=== PATIENT | female | born 1990 | race Caucasian/White ===

== ENCOUNTER 2016-10-08 20:58 | Emergency (ER) ==
[2016-10-08 21:13] VITALS: BP 137/86
--- NOTE | 2016-10-08 21:46 | PROVIDER DOCUMENTATION ---
HPI-Musculoskeletal Pain/Inj - GENERAL Chief Complaint: Extremity Injury Stated Complaint: ANKLE PAIN/BROKE Time Seen by Provider: 10/08/16 21:17 Source: patient - HX OF PRESENT ILLNESS-MUSKULOSKELTAL Nature of Presenting Problem: 26 y/o WF c/o R ankle pain x 30 minutes s/p fall. Pt states inversion injury as she was stepping off of the last step of her front porch. States heard a popping sound, felt pain, and fell forward. Denies any knee pain, numbness/ tingling, head injury, other pain. States pain is 6/10. LROM at ankle. Review of Systems - Adult - REVIEW OF SYSTEMS - ADULT Constitutional: reports: no symptoms reported. denies: chills, fever Eyes: reports: no symptoms reported. denies: blurred vision, double vision Ears, Nose, Mouth & Throat: reports: no symptoms reported. denies: ear pain, nose pain Cardiovascular: reports: no symptoms reported. denies: chest pain, palpitations Respiratory: reports: no symptoms reported. denies: dyspnea on exertion, shortness of breath Gastrointestinal: reports: no symptoms reported. denies: nausea, vomiting Genitourinary: reports: no symptoms reported. denies: dysuria, frequency Musculoskeletal: reports: see HPI, joint pain, joint swelling. denies: back pain, neck pain Integumentary: reports: no symptoms reported. denies: nail changes, rash Neurological: reports: no symptoms reported. denies: numbness, paresthesia Psychiatric: reports: no symptoms reported Endocrine: reports: no symptoms reported. denies: cold intolerance, heat intolerance Hematologic/Lymphatic: reports: no symptoms reported. denies: easy bruising, prolonged bleeding Allergic/Immunologic: reports: no symptoms reported All Other Systems: Reviewed and Negative Past History - Adult - PAST MEDICAL HISTORY-ADULT Review of Records: reports: Nursing Assessment Review, Medications Reviewed Major Childhood Illnesses: reports: denies history Cardiovascular: reports: denies history Respiratory: reports: denies history Gastrointestinal: reports: denies history Genitourinary: reports: denies history Musculoskeletal: reports: denies history Neurological: reports: denies history Psychiatric: reports: denies history Endocrine/Immune: reports: denies history - PRIOR SURGERIES/PROCEDURES Surgical/Procedure History: reports: - PRIOR HOSPITALIZATIONS Prior Hospitalizations: reports: none - SOCIAL HISTORY Smoking: cigarettes, less than 1 pack/day Provider spent 3-5 mins advising pt. on dangers of tobacco.: Discussed manners to quit use, and f/u contacts for add'l counseling. Physical Exam-Injury Related - Physical Exam-Injury Related Initial Vital Signs Reviewed: Yes General Appearance: alert, mild distress Eyes: pink conjunctivae Head, Ears, Nose, Mouth & Throat: normocephalic/atraumatic Neck: normal inspection Respiratory: no respiratory distress Cardiovascular: normal peripheral pulses, regular rate, rhythm Peripheral Pulses: dorsalis-pedis (R): 2+, dorsalis-pedis (L): 2+ Back Exam: normal inspection, no vertebral tenderness Extremity: normal inspection, normal capillary refill, swelling (mild, lateral aspect of R ankle), tenderness (lateral aspect of R ankle). negative: normal range of motion (LROM at R ankle), abnormal NV exam, deformity, pulse deficit Integumentary: normal color, warm/dry, blanching. negative: ecchymosis Neurologic: other (able to move toes on her own on R foot; no R knee, tib/fib pain.). negative: aphasia, sensory deficit Psych/Mental Status: normal mood/affect, normal thought content, normal thought process, oriented x 3 Progress - PLAN OF CARE/RESULTS Progress/Plan/Lab Results: Orders Category Date Time Status Robinson Wrap Application DIRECTED Care 10/08/16 21:51 Active Crutches DIRECTED Care 10/08/16 21:51 Active ANKLE COMPLETE RIGHT [RAD] Stat Exams 10/08/16 21:19 Completed FOOT COMPLETE RIGHT [RAD] Stat Exams 10/08/16 21:19 Completed Hydrocodone/APAP 7.5 mg/325 mg [Galloway-7.5] Med 10/08/16 21:51 Discontinued 1 each PO NOW ONE Ondansetron Odt [Zofran Odt] Med 10/08/16 21:51 Discontinued 4 mg PO NOW ONE Vital Signs Temp Pulse Resp BP Pulse Ox 10/08/16 21:09 97.7 F 105 H 18 137/86 100 No Known Allergies Allergy (Verified 06/24/14 14:37) Hydrochlorothiazide 25 mg PO DAILY 10/08/16 Tramadol [Ultram] 50 mg PO Q8HR #5 tablet 10/08/16 NICOTINE DEPENDENCE, CIGARETTES, UNCOMPLICATED (10/08/16) EFFUSION, RIGHT ANKLE (10/08/16) PAIN IN RIGHT ANKLE AND JOINTS OF RIGHT FOOT (10/08/16) SPRAIN OF UNSPECIFIED LIGAMENT OF RIGHT ANKLE, INIT ENCNTR (10/08/16) OTHER FALL FROM ONE LEVEL TO ANOTHER, INITIAL ENCOUNTER (10/08/16) TOBACCO ABUSE COUNSELING (10/08/16) OTHER MORNING NANNY (CURRENT) DRUG THERAPY (10/08/16) - XRAY 1 XRAY: Right XRAY Study: Ankle XRAY Interpretation: No fx 2 XRAY: Right XRAY Study: Foot XRAY Interpretation: No fx Procedures - SPLINTING Right Lower Extremity Pre-Procedure Neurovascular Exam: Intact Pre-Fabricated Splint: Robinson Wrap Applied By: ED Nurse Post Procedure Neurovascular Exam: Intact Procedure Comment: Pt tolerated well Departure - Departure Time of Disposition Order: 21:48 DIAGNOSIS: Ankle sprain Qualifiers: Encounter type: initial encounter Involved ligament of ankle: unspecified ligament Laterality: right Qualified Code(s): S93.401A - Sprain of unspecified ligament of right ankle, initial encounter Disposition: HOME 01 Certified Medical Emergency: Emergent Condition: Stable Additional Instructions: RICE often, no more than 10 minutes at a time. Take tylenol or motrin as needed for pain. No weight bearing for 10 days, or until cleared by orthopedist. ED Follow Up Instructions: You have been treated by a care provider in the Emergency Department. These instructions are being provided to you so you can have an understanding of how to care for yourself upon discharge. Upon discharge from the Emergency Department, you are responsible for making arrangements for follow-up care by a physician of your choice. Take all prescribed medications as directed. Return to the Emergency Department immediately for any new or worsening symptoms. You may call the Physician Referral phone number at [phone] to obtain a list of Physicians who are taking new patients. Prescriptions: Tramadol [Ultram] 50 mg PO Q8HR #5 tablet Referrals: None,PCP [Primary Care Provider] - Janet Browning MD [STAFF PHYSICIAN] - Forms: Return to School/Parent Work Instructions: Ankle Sprain, Tramadol tablets Attestation - Physician/ DINORAH Attestation Patient care was provided by Advanced Practice Provider:: Yes Advanced Practice Provider:: Aydee Barrientos Advanced Practice Provider documentation review:: The Mid-level provider documentation, treatment plan and medical decision making was reviewed by the physician who agrees with all treatment and medical decision making by the MLP.
[2016-10-08] MEDS ORDERED: NORCO-7.5 PO ONE (21:51)
[2016-10-08] MEDS ORDERED: ZOFRAN ODT PO ONE (21:51)
--- NOTE | 2016-10-09 13:51 | Diag Imaging Result Document ---
PROCEDURE NAME: ANKLE COMPLETE RIGHT - 10/08/2016 PLAIN RADIOGRAPH OF THE RIGHT ANKLE, 3 VIEWS: COMPARISON: None available. FINDINGS: There is no evidence of fracture, dislocation, or intrinsic osseous lesion. The joint spaces are preserved. There is perhaps minimal soft tissue edema anterior to the ankle. IMPRESSION: No evidence of acute osseous abnormality by plain radiograph.
--- NOTE | 2016-10-09 14:20 | Diag Imaging Result Document ---
PROCEDURE NAME: FOOT COMPLETE RIGHT - 10/08/2016 PLAIN RADIOGRAPH OF THE RIGHT FOOT, 3 VIEWS: COMPARISON: None available. FINDINGS: There is no evidence of fracture, dislocation, or intrinsic osseous lesion. The joint spaces are preserved. There is mild soft tissue edema at the dorsum of the foot. IMPRESSION: No definite acute osseous abnormality.
== END 2016-10-08 22:18 | disposition home or self-care (01) ==
LOC: P.ED 20:58
DX: S93.401A Sprain of unspecified ligament of right ankle, initial encounter (principal); M25.571 Pain in right ankle and joints of right foot; M25.471 Effusion, right ankle; F17.210 Nicotine dependence, cigarettes, uncomplicated; Z71.6 Tobacco abuse counseling; W17.89XA Other fall from one level to another, initial encounter; Z79.899 Other long term (current) drug therapy
CPT/HCPCS: 99284